=== PATIENT | male | born 1995 | race Two or more races ===

== ENCOUNTER 2022-08-16 15:10 | Emergency (ER) | payer OTHER ==
[~2022-08-16] VITALS: Ht 177.8 cm; Wt 107.0 kg
[2022-08-16] MEDS ORDERED: KETOROLAC TROMETH 30 MG/ML 1ML VIAL IM ONE (15:45)
[2022-08-16] MEDS ORDERED: CYCL-839 PO (16:33)
[2022-08-16] MEDS ORDERED: LIDO5DIS21 TOP (16:33)
[2022-08-16] MEDS ORDERED: IBUP600T28 PO (16:33)
[2022-08-16 16:49] VITALS: BP 112/79
== END 2022-08-16 16:52 | disposition home or self-care (01) ==
LOC: ER 15:10
DX: M51.36 Other intervertebral disc degeneration, lumbar region (principal); G89.29 Other chronic pain; M54.50 Low back pain, unspecified; Z91.048 Other nonmedicinal substance allergy status
CPT/HCPCS: 72100; 96372; 99283; J1885